=== PATIENT | male | born 1965 | race Caucasian/White ===

== ENCOUNTER 2020-05-03 08:10 | Day surgery (SDC) | payer OTHER ==
[~2020-05-03] VITALS: Ht 177.8 cm; Wt 105.0 kg
[~2020-05-03 08:10] MED LIST: ABAT250V; ATOR40TA PO; Aspir 8181 MG PO; COMBIVENT RESPIM4 G1; CYCL10 PO; DIAZ2 PO; HYDACE10B PO; HYDCHL25 PO; HYDR1TAB94 PO; LIDO700A20 TOP; LISI20 PO; LORA10ER PO; METO25ER PO; METPRE4 PO; TRAZ50 PO
[2020-05-03] MEDS ORDERED: METO25ER PO (08:44)
[2020-05-03] MEDS ORDERED: ATOR40TA PO (08:45)
[2020-05-03] MEDS ORDERED: CELE200 PO (08:46)
[2020-05-03] MEDS ORDERED: BUTALBITAL-ASA1 EACH PO (08:47)
--- NOTE | 2020-05-03 09:49 | NUR ---
PT RETURNED FROM [facility] [employer] IN BED. RIGHT RADIAL TR BAND SITE WITH WRIST BOARD IN PLACE SOFT NON-TENDER WITH NO HEMATOMA, NO PULSATILE BLEEDING. PT DENIES CHEST PAIN. PT SITTING UP EATING BREAKFAST; CALL LIGHT IN REACH.
--- NOTE | 2020-05-03 09:52 | NUR ---
TO [facility] VIA BED. TR BAND IN PLACE WITH 12 CC AIR, CIRCULATION, MOTION, SENSATION NORMAL.
--- NOTE | 2020-05-03 11:43 | NUR ---
10 CC OF AIR REMOVED FROM NOW DEFLATED RIGHT TR BAND OVER 10 MIN NO HEMATOMA, NO PULSATILE BLEEDING NON-TENDER. DISCHARGE INSTRUCTIONS REVIEWED ALL QUESTIONS ANSWERED.
--- NOTE | 2020-05-03 12:51 | NUR ---
DEFLATED RIGHT TR BAND REMOVED AND POLYMEM PLACED OVER RIGHT RADIAL SITE. RIGHT RADIAL SITE WITH WRIST BOARD IN PLACE SOFT NON-TENDER WITH NO HEMATOMA, NO PULSATILE BLEEDING. 20 IV DISCONTINUED FROM LEFT HAND WITH INTACT CANNULA. PT ESCORTED OUT VIA WHEELCHAIR ESCORT.
== END 2020-05-03 13:00 | disposition home or self-care (01) ==
LOC: MHTC 08:10
DX: R07.89 Other chest pain (principal); I25.10 Atherosclerotic heart disease of native coronary artery without angina pectoris; J44.9 Chronic obstructive pulmonary disease, unspecified; I10 Essential (primary) hypertension; F43.10 Post-traumatic stress disorder, unspecified; F41.1 Generalized anxiety disorder; G43.909 Migraine, unspecified, not intractable, without status migrainosus; Z87.891 Personal history of nicotine dependence
CPT/HCPCS: 76937; 93454; 99152; A9270; C1769; C1894; J1644; J2250; J3010; J7030; J7050; Q9967